=== PATIENT | female | born 1980 | race Caucasian/White ===

== ENCOUNTER 2016-04-20 07:02 | Day surgery (SDC) | payer BC ==
--- NOTE | ~2016-04-20 | EGD ---
EGD REPORT [facility] [address] [id number] NAME: MARCOS LA : [birth year] STATUS : REG [facility]#: [id number] AGE: 36 ADM/REG DATE : 04/20/16 MR#: [id number] REPORT SERV DATE: 04/20/16 DICTATED BY: BRAD LYON DATE: 04/20/16 REPORT STATUS : Draft [facility]ANS[facility]IB[facility]: [facility] DATE: 04/20/16 Endoscopy Center Patient Name: Marcos La Date of : 1980 Attending MD: BRAD LYON MD Procedure Date No Time: 04/20/2016 Procedure: Colonoscopy Indications: Epigastric abdominal pain, Chronic diarrhea Referring MD: STEVE CANALES Medicines: Monitored Anesthesia Care Complications: No immediate complications. Procedure: Pre-Anesthesia Assessment: - ASA Grade Assessment: II - A patient with mild systemic disease. After I obtained informed consent, the scope was passed under direct vision. Throughout the procedure, the patient's blood pressure, pulse, and oxygen saturations were monitored continuously. The PCF [id number] was introduced through the anus and advanced to the terminal ileum, with identification of the appendiceal orifice and IC valve. The colonoscopy was performed with moderate difficulty due to significant looping. Successful completion of the procedure was aided by applying abdominal pressure. The patient tolerated the procedure well. The quality of the bowel preparation was good. Findings: The digital rectal exam was normal. Pertinent negatives include no palpable rectal lesions. The terminal ileum appeared normal. Hemorrhoids were found during retroflexion and were mild. A few diverticula were found in the sigmoid colon. The ascending colon appeared normal. Biopsies were taken with a cold forceps for histology. The sigmoid colon appeared normal. Biopsies were taken with a cold forceps for histology. A sessile polyp was found in the distal sigmoid colon. The polyp was 4 mm in size. The polyp was removed with a cold biopsy forceps. Resection and retrieval were complete. Impression: - The examined portion of the ileum was normal. - Hemorrhoids. - Diverticulosis in the sigmoid colon. - The ascending colon is normal. Biopsied. EGD REPORT [address] [address] NAME: MARCOS LA : [birth year] STATUS : REG [facility] PAT#: [id number] AGE: 36 ADM/REG DATE : 04/20/16 MR#: [id number] REPORT SERV DATE: 04/20/16 DICTATED BY: BRAD LYON DATE: 04/20/16 REPORT STATUS : Draft TRANSCRIBED BY: [employer] DATE: 04/20/16 - The sigmoid colon is normal. Biopsied. - One 4 mm polyp in the distal sigmoid colon. Resected and retrieved. Recommendation: - Patient has a contact number available for emergencies. The signs and symptoms of potential delayed complications were discussed with the patient. Return to normal activities tomorrow. Written discharge instructions were provided to the patient. - Regular diet. - Await pathology results. - Repeat colonoscopy for surveillance based on pathology results. - Return to GI clinic in 4 weeks. Procedure Code(s): --- Professional --- 90867, Colonoscopy, flexible, proximal to splenic flexure; with biopsy, single or multiple Diagnosis Code(s): --- Professional --- K64.9, Unspecified hemorrhoids K57.30, Diverticulosis of large intestine without perforation or abscess without bleeding D12.5, Benign neoplasm of sigmoid colon R10.13, Epigastric pain K52.9, Noninfective gastroenteritis and colitis, unspecified CPT copyright 2013 [employer]. All rights reserved. The codes documented in this report are preliminary and upon automatic typewriter inspector review may be revised to meet current compliance requirements. BRAD LYON MD 04/20/2016 8:54 AM This report has been signed electronically. Number of Addenda: 0 Note Initiated On: 04/20/2016 8:20 AM Scope Withdrawal Time 0 hours 8 minutes 13 seconds [id number] [id number]
--- NOTE | ~2016-04-20 | EGD ---
EGD REPORT [facility] [address] [address] NAME: MARCOS LA : [birth year] STATUS : REG [facility]#: [id number] AGE: 36 ADM/REG DATE : 04/20/16 MR#: [id number] REPORT SERV DATE: 04/20/16 DICTATED BY: BRAD LYON DATE: 04/20/16 REPORT STATUS : Draft TRANSCRIBED BY: [facility] DATE: 04/20/16 Endoscopy Center Patient Name: Marcos La Date of : 1980 Attending MD: BRAD LYON MD Procedure Date No Time: 04/20/2016 Procedure: Upper GI endoscopy Indications: Epigastric abdominal pain, Unexplained chest pain, Diarrhea, Nausea with vomiting Referring MD: STEVE CANALES Medicines: Monitored Anesthesia Care Complications: No immediate complications. Procedure: Pre-Anesthesia Assessment: - ASA Grade Assessment: II - A patient with mild systemic disease. After obtaining informed consent, the endoscope was passed under direct vision. Throughout the procedure, the patient's blood pressure, pulse, and oxygen saturations were monitored continuously. The GIF H190 [id number] was introduced through the mouth, and advanced to the second part of duodenum. The upper GI endoscopy was accomplished without difficulty. The patient tolerated the procedure well. Findings: The lower third of the esophagus was normal. Biopsies were taken with a cold forceps for histology. A small hiatus hernia was present. The duodenal bulb and 2nd part of the duodenum were normal. Biopsies were taken with a cold forceps for histology. The cardia and gastric fundus were normal on retroflexion. Impression: - Normal lower third of esophagus. Biopsied. - Hiatus hernia. - Normal duodenal bulb and 2nd part of the duodenum. Biopsied. Recommendation: - Patient has a contact number available for emergencies. The signs and symptoms of potential delayed complications were discussed with the patient. Return to normal activities tomorrow. Written discharge instructions were provided to the patient. - Return to previous diet. - Await pathology results. EGD REPORT [facility] [address] [id number] NAME: MARCOS LA : [birth year] STATUS : REG [facility]#: [id number] AGE: 36 ADM/REG DATE : 04/20/16 MR#: [id number] REPORT SERV DATE: 04/20/16 DICTATED BY: BRAD LYON DATE: 04/20/16 REPORT STATUS : Draft TRANSCRIBED BY: [employer] DATE: 04/20/16 Procedure Code(s): --- Professional --- 93306, Esophagogastroduodenoscopy, flexible, transoral; with biopsy, single or multiple Diagnosis Code(s): --- Professional --- K44.9, Diaphragmatic hernia without obstruction or gangrene R10.13, Epigastric pain R07.9, Chest pain, unspecified R19.7, Diarrhea, unspecified R11.2, Nausea with vomiting, unspecified CPT copyright 2013 [employer]. All rights reserved. The codes documented in this report are preliminary and upon special officer review may be revised to meet current compliance requirements. BRAD LYON MD 04/20/2016 8:37 AM This report has been signed electronically. Number of Addenda: 0 Note Initiated On: 04/20/2016 8:17 AM Scope Withdrawal Time 0 hours 0 minutes 0 seconds [id number] [id number]
[~2016-04-20 07:02] MED LIST: BENTYL10 PO; ENDOCET1 TA3; ESTRACE1 MG PO; NORCO1 TA1 PO; P5 PO; PLAQ200B PO; SUCR PO; ZESTORETIC1 TAB PO
== END 2016-04-20 23:59 | disposition home or self-care (01) ==
LOC: DMU 07:02
PROVIDERS: Internal Medicine Gastroenterology
PROC: 0DBK8ZX Excision of Ascending Colon, Via Natural or Artificial Opening Endoscopic, Diagnostic (ICD-10-PCS; 2016-04-20)
PROC: 0DBN8ZZ Excision of Sigmoid Colon, Via Natural or Artificial Opening Endoscopic (ICD-10-PCS; 2016-04-20)
PROC: 0DB38ZX Excision of Lower Esophagus, Via Natural or Artificial Opening Endoscopic, Diagnostic (ICD-10-PCS; principal; 2016-04-20 09:00)
PROC: 0DB98ZX Excision of Duodenum, Via Natural or Artificial Opening Endoscopic, Diagnostic (ICD-10-PCS; 2016-04-20 09:00)
DX: K29.80 Duodenitis without bleeding (principal); K63.5 Polyp of colon; K44.9 Diaphragmatic hernia without obstruction or gangrene; K64.9 Unspecified hemorrhoids; K57.30 Diverticulosis of large intestine without perforation or abscess without bleeding; I12.9 Hypertensive chronic kidney disease with stage 1 through stage 4 chronic kidney disease, or unspecified chronic kidney disease; N18.9 Chronic kidney disease, unspecified; E04.9 Nontoxic goiter, unspecified; M32.9 Systemic lupus erythematosus, unspecified; Z90.49 Acquired absence of other specified parts of digestive tract; Z90.710 Acquired absence of both cervix and uterus; Z87.891 Personal history of nicotine dependence; Z79.818 Long term (current) use of other agents affecting estrogen receptors and estrogen levels; Z98.890 Other specified postprocedural states; Z79.899 Other long term (current) drug therapy
CPT/HCPCS: 88305; A9270-GY

== ENCOUNTER 2016-06-30 19:10 | Observation (INO) | payer BC ==
--- NOTE | ~2016-06-30 | HP ---
History And Physical [place] [id number] [place]. [address] NAME: MARCOS LA : [birth year] STATUS : ADM Lucretia PAT#: [id number] AGE: 36 ADM/REG DATE : 06/30/16 MR#: [id number] REPORT SERV DATE: 07/01/16 DICTATED BY: RADHA TIAN DATE: 07/01/16 REPORT STATUS : Draft TRANSCRIBED BY: [employer] DATE: 07/01/16 DATE OF ADMISSION: 06/30/2016 FOAM CASTER: Dr. Frank. CHIEF COMPLAINT: Atypical chest pain. HISTORY OF PRESENT ILLNESS: A very pleasant 36-year-old white female with no known history of CAD, states that over the last two days, she has experienced episodic left upper arm ache and burning with chest pain. She states that she awoke on 06/30/2016 with some nausea and vomiting, and felt "weird." She describes again having left upper extremity ache, burning, and aggravating sensation with a substernal chest pain described as a stabbing sensation. She reports associated nausea, dizziness. Denies shortness of breath, diaphoresis, or belching. The chest pain is not reproducible on exam. At its most intense, she rates it a 7/10. At the time of interview in the [facility], she rates it a 5/10. She states that it "comes and goes." There seemingly no clear exertional pattern. She states there has been no change in her activity. She went to Urgent Care yesterday, and was recommended that she come to the emergency room for further evaluation and treatment. She states that her symptoms were improved with nitroglycerin provided in the emergency room decreasing her chest pain to a 2/10, but giving her a headache. The patient denies any personal history of myocardial infarction, stroke, DVT, or pulmonary embolus. The patient denies any recent fever or chills, no palpitations, no syncopal episodes. Denies PND or orthopnea. PAST MEDICAL HISTORY: 1. Lupus. 2. Hypertension. 3. CKD, stage 2, followed by Dr. Frank every six months. 4. Ongoing tobacco abuse. 5. BMI of greater than 40. 6. Positive family history for early CAD. PAST SURGICAL HISTORY: 1. Hysterectomy. 2. Lumpectomy, right breast "benign.". 3. Bilateral shoulder surgery. 4. Cholecystectomy. SOCIAL HISTORY: She is with two children. She is employed in an office. She walks three to four times weekly, 1 to 1.5 miles, generally without incident. Smokes a half pack per day for twelve plus years. Denies alcohol or illicits. FAMILY HISTORY: No embolic events reported in the first-degree relatives, although maternal grandfather with a heart attack at 38, bypass and stents. in his 50s. History And Physical [address] [place]. [address] NAME: MARCOS LA : [birth year] STATUS : ADM Lucretia PAT#: [id number] AGE: 36 ADM/REG DATE : 06/30/16 MR#: [id number] REPORT SERV DATE: 07/01/16 DICTATED BY: RADHA TIAN DATE: 07/01/16 REPORT STATUS : Draft TRANSCRIBED BY: RAÚL DATE: 07/01/16 REVIEW OF SYSTEMS: A 14-point review of systems was performed, significant for HPI. No other contributory diagnoses identified. ALLERGIES: INTOLERANCE TO NSAIDS DUE TO KIDNEY DISEASE. MORPHINE, HEART ATTACK SYMPTOMS. HOME MEDICATIONS: Estrace daily, Plaquenil 200 mg daily, and lisinopril/HCTZ 10/12.5 daily. PHYSICAL EXAMINATION: BLOOD PRESSURE: 99/66, PULSE: 83, RESPIRATORY RATE: 14, TEMPERATURE: 97.4, and O2 saturation 96% on room air. HEIGHT: 5 feet 3 inches. WEIGHT: 224 pounds. BMI of 39.6. GENERAL: Cooperative, in no apparent distress. HEENT: Pupils 2 mm, sclera nonicteric. Nares patent. Moist mucous membranes. No xanthelasma. NECK: Trachea midline, no thyromegaly. No JVD. No bruits. LYMPH: No cervical lymphadenopathy. No supraclavicular lymphadenopathy. RESPIRATORY: Unlabored respirations. Breath sounds clear bilaterally to posterior auscultation. No wheezes or rhonchi. CARDIOVASCULAR: Regular rate. No murmur, rub or gallop appreciated. EXTREMITIES: Without edema. Pulses 2+ bilaterally. ABDOMEN: Soft, nontender, nondistended, normal bowel sounds auscultated throughout. No organomegaly. SKIN: Warm, dry extremities. No pallor, or cyanosis. PSYCHIATRIC: Appropriate affect. Alert, oriented x3. LABORATORY DATA: Troponin is less than 0.02 twice. Potassium 3.8, BUN 11, creatinine 0.94, glucose 98, and lipase 124. WBC 8.0, hemoglobin 16.0, hematocrit 45.9, and platelet count 254,000. EKG sinus rhythm, IRBBB, PRWP, nonspecific T-waves. TMO in 2011: Vaibhav stage 2, 6:22 minutes, negative study. ASSESSMENT AND PLAN: 1. Atypical chest pain in a patient with risk factors of hypertension, tobacco use, and positive family history. The patient has been observed in the CPOU overnight to rule out myocardial infarction, serial enzymes and serial EKGs, and held n.p.o. We would proceed with cardiac cath today, given body habitus. The patient will be discharged home if low risk, no ischemia. If anything suggestive of ischemia, Cardiology referral will be initiated. Otherwise, the patient will be asked to follow up with her PCP in one to two weeks with all studies being sent to that office. 2. Hypertension. Monitor blood pressure and continue home medications. 3. Chronic kidney disease, stage [address] Frank every six months. 4. Ongoing tobacco abuse. Counseled regarding cessation. 5. BMI of greater than 40. The patient currently walks three to four times weekly. I encouraged to continue her walking program with diet. History And Physical [address] [address] NAME: MARCOS LA : [birth year] STATUS : ADM Lucretia PAT#: [id number] AGE: 36 ADM/REG DATE : 06/30/16 MR#: [id number] REPORT SERV DATE: 07/01/16 DICTATED BY: RADHA TIAN DATE: 07/01/16 REPORT STATUS : Draft TRANSCRIBED BY: MODSandra DATE: 07/01/16 KATHRIN/RAÚL RUSSELL Mirza, WEIGHT REDUCING TECHNICIAN-BC / [id number] CC: RUSSELL Mirza, WEIGHT REDUCING TECHNICIAN-BC STEVE CANALES
[2016-06-30 19:36] LABS: BASOPHILS 0.3 %; BASOPHILS ABSOLUTE 0.02 10/3/uL (0.0-0.16); EOSINOPHILS 1.1 %; EOSINOPHILS ABSOLUTE 0.09 10/3/uL (0.0-0.53); ER CBC TAT 0 Hrs 11 Mins; HEMATOCRIT 45.9 % (36.0-48.0); IMMATURE GRANULOCYTES 0.1 %; IMMATURE GRANULOCYTES ABSOLUTE 0.01 10/3/uL (0.0-0.11); LYMPHOCYTES 41.3 %; MEAN CORPUS HGB CONC 34.9 g/dL (32.0-36.0); MEAN CORPUSCULAR HEMOGLOB 30.5 pg (26.0-34.0); MEAN CORPUSCULAR VOLUME 87.4 fL (80-100); MEAN PLATELET VOLUME 9.5 fL (9.2-13.0); MONOCYTES 6.6 %; MONOCYTES ABSOLUTE 0.53 10/3/uL (0.21-1.20); NEUTROPHILS 50.6 %; NEUTROPHILS ABSOLUTE 4.05 10/3/uL (2.02-8.40); PLATELET COUNT 254 10/3/uL (150-400); RBC DISTRIBUTION WIDTH 12.9 % (12.0-16.0); RED CELL COUNT 5.25 10/6/uL (4.0-5.6)
[2016-06-30 19:38] LABS: MANUAL DIFF NO %
[2016-06-30 19:44] LABS: INTERNATIONAL NORMAL RATI 1.1 UNITS (-); PARTIAL THROMBO TIME 37.7 SEC (22.5-37.2); PROTIME (NOT ORD) 13.8 SEC (12.0-14.5)
[2016-06-30 19:57] LABS: CALCIUM, SERUM 9.1 MG/DL (8.5-10.4); CHLORIDE, SERUM 102 MMOL/L (96-112); CO2 (CARBON DIOXIDE) 30 MMOL/L (24-34); CREATININE 0.94 MG/DL (0.55-1.02); GFR AFRICAN AMERICAN 91 ML/MIN (>=60); GFR NON AFRICAN AMERICAN 79 ML/MIN (>=60); GLUCOSE, SERUM 98 MG/DL (60-99); POTASSIUM, SERUM 3.8 MMOL/L (3.5-5.3); SODIUM, SERUM 138 MMOL/L (135-148); TROPONIN I <0.02 NG/ML (<0.05)
[2016-06-30 19:58] LABS: BUN (BLOOD UREA NITROGEN) 11 MG/DL (6-23); CHEST PAIN PROFILE TAT 0 Hrs 32 Mins
[2016-06-30 21:17] LABS: ALKALINE PHOSPHATASE 91 U/L (45-117); DIRECT BILIRUBIN 0.1 MG/DL (0.0-0.4); INDIRECT BILIRUBIN(NOT ORDER) 0.3 MG/DL (0.1-0.9); SGOT(AST) 12 U/L (5-40); SGPT(ALT) 32 U/L (5-65); TOTAL BILIRUBIN 0.4 MG/DL (0-1.2); TOTAL PROTEIN 7.7 G/DL (6.0-8.5)
[2016-06-30] MEDS ORDERED: ESTRACE1 MG PO (22:14)
[2016-06-30] MEDS ORDERED: PLAQ200B PO (22:15)
[2016-06-30] MEDS ORDERED: PRINZIDE1 TAB PO (22:15)
== END 2016-07-01 14:45 | disposition home or self-care (01) ==
LOC: ER 19:10 → CDU1 22:20 → CDU2 22:37
PROVIDERS: Emergency Medicine
DX: R07.89 Other chest pain (principal); I12.9 Hypertensive chronic kidney disease with stage 1 through stage 4 chronic kidney disease, or unspecified chronic kidney disease; N18.2 Chronic kidney disease, stage 2 (mild); F17.210 Nicotine dependence, cigarettes, uncomplicated; M32.9 Systemic lupus erythematosus, unspecified; Z90.49 Acquired absence of other specified parts of digestive tract; Z90.710 Acquired absence of both cervix and uterus; Z98.890 Other specified postprocedural states; Z79.899 Other long term (current) drug therapy; Z88.5 Allergy status to narcotic agent
CPT/HCPCS: 71020; 78492; 80048; 80076; 83690; 83735; 84484; 85025; 85610; 85730; 93005; 93017; 96374; 96375; 96376; 99285; A9270-GY; A9555; G0378; J0280; J1170; J2405; J2785